=== PATIENT | female | born 1995 | race Native Hawaiian/Other Pacific Islander ===

== ENCOUNTER 2017-12-15 13:12 | Emergency (ER) | payer OTHER ==
[~2017-12-15] VITALS: Ht 154.9 cm; Wt 102.1 kg
[2017-12-15 13:15] VITALS: TEMP 98.4
[2017-12-15 13:56] LABS: PLATELET COUNT 310 K/uL (152-353)
[2017-12-15 16:35] VITALS: BP 134/98
== END 2017-12-15 16:45 | disposition home or self-care (01) ==
LOC: ED 13:12
DX: N39.0 Urinary tract infection, site not specified (principal)
CPT/HCPCS: 36415; 80053; 81000; 85027; 87077; 87086; 87088; 87186; 99283; Q9963